=== PATIENT | male | born 1950 | race Caucasian/White ===

== ENCOUNTER → 2016-09-26 | Outpatient (CLI) | payer MEDICARE ==
--- NOTE | 2016-09-26 14:38 | PCVCIMAG ---
EXAM: VENOUS DUPLEX LEFT LOWER EXTREMITY INDICATION: Left leg DVT. FINDINGS: Left leg: No thrombus in the common femoral vein. Moderate amount of nonocclusive thrombus in the lower main femoral vein is unchanged since September 11 study. Since prior study nonocclusive thrombus in the mid and lower left popliteal vein is now identified. Calf veins remain patent. IMPRESSION: No change in moderate nonocclusive thrombus lower main femoral vein since recent study. There is however nonocclusive thrombus now identified in the mid and and lower popliteal vein on today's study and this was not previously reported. Results reviewed with Dr. Yan. LOC:[id number]
--- NOTE | 2016-09-26 17:46 | PCVCIMAG ---
APPROVED REPORT Study performed: 09/26/2016 11:19:49 EXAM: Limited 2D and color flow Echocardiogram Other Information Study Quality: Technically Limited Technically limited study due to body habitus. Risk Factors: Cardiac Risk Factors: HTN, SOB Indications Pulmonary Embolism Dyspnea 2D Dimensions LVEF(%): 50.01 (>50%) IVSd: 12.91 (7-11mm) LVDd: 44.14 mm PWd: 11.72 (7-11mm)Ascending Ao: 34.10 (22-36mm) LVDs: 33.01 (25-40mm) Left Atrium: 34.39 (27-40mm) Aortic Root: 34.46 mm LV Single Plane 4CH: 57.33 % LV Single Plane 2CH: 47.60 %Duran's LVEF: 52.47 % Biplane EF: 51.2 % Aortic Valve AoV Peak Salvador.: 1.10 m/s AO Peak Gr.: 4.81 mmHg Mitral Valve E/A Ratio: 0.9 MV Decel. Time: 272.86 ms MV E Max Salvador.: 0.52 m/s MV A Salvador.: 0.59 m/s Tricuspid Valve TR Peak Salvador.: 2.40 m/s TR Peak Gr.: 23.02 mmHg Left Ventricle The left ventricle is normal size. There is normal LV segmental wall motion. Mild basal septal hypertrophy is present. Left ventricular systolic function is within lower limits of normal. LVEF is 50%. Grade I - abnormal relaxation pattern. Right Ventricle Right ventricle is mildly dilated. The right ventricular systolic function is normal. Atria Left atrium is mildly dilated. The right atrium size is normal. Aortic Valve The aortic valve is normal in structure. No aortic regurgitation is present. There is no aortic valvular stenosis. Mitral Valve The mitral valve is normal in structure. There is no mitral valve regurgitation noted. No evidence of mitral valve stenosis. Tricuspid Valve The tricuspid valve is normal in structure. Mild tricuspid regurgitation with PAP of 33 mmHg. Pulmonic Valve The pulmonary valve is normal in structure. There is no pulmonic valvular regurgitation. Great Vessels The aortic root is normal in size. IVC is normal in size and collapses with >50% inspiration Pericardium There is no pericardial effusion. There is no pleural effusion. <Conclusion> The left ventricle is normal size. Left ventricular systolic function is within lower limits of normal. LVEF is 50%. Grade I - abnormal relaxation pattern. Right ventricle is mildly dilated. The right ventricular systolic function is normal. Left atrium is mildly dilated. The right atrium size is normal. The aortic valve is normal in structure. There is no mitral valve regurgitation noted. Mild tricuspid regurgitation with PAP of 33 mmHg. There is no pericardial effusion.
== END | disposition home or self-care (01) ==
LOC: PCVCIMAG 10:11
PROVIDERS: ATTEND Internal Medicine Cardiovascular Disease
DX: I07.1 Rheumatic tricuspid insufficiency (principal); I10 Essential (primary) hypertension; E78.5 Hyperlipidemia, unspecified; I25.10 Atherosclerotic heart disease of native coronary artery without angina pectoris; I82.402 Acute embolism and thrombosis of unspecified deep veins of left lower extremity; I26.92 Saddle embolus of pulmonary artery without acute cor pulmonale; R06.00 Dyspnea, unspecified; Z79.899 Other long term (current) drug therapy; Z87.891 Personal history of nicotine dependence
CPT/HCPCS: 93308; 93971; G0463; 93005

== ENCOUNTER → 2016-12-25 | Outpatient (CLI) | payer MEDICARE ==
--- NOTE | 2016-12-25 09:46 | PCVCIMAG ---
EXAM: VENOUS DUPLEX LEFT LOWER EXTREMITY INDICATION: Leg pain and swelling. DVT. FINDINGS: Left leg: No thrombus in the common femoral or main femoral veins. The upper popliteal vein is patent. There is moderate nonocclusive thrombus in the lower popliteal vein. Calf veins are unremarkable where seen. IMPRESSION: Moderate nonocclusive thrombus in the lower left popliteal vein similar to September 2016 study. Since the prior study nonocclusive thrombus in the upper popliteal vein and lower main femoral vein has resolved. LOC:[id number]
--- NOTE | 2016-12-25 13:37 | PCVCIMAG ---
APPROVED REPORT Study performed: 12/25/2016 08:34:27 EXAM: Comprehensive 2D, Doppler, and color-flow Echocardiogram Patient Location: Echo lab Status: routine BSA: 2.71 HR: 70 bpmBP: 140/80 mmHg Rhythm: NSR Other Information Study Quality: Technically Limited Indications CAD Hypertension/HDD Pulmonary emboli. Hyperlipidemia. Left Ventricle LVEF is >55%. Right Ventricle Right ventricle is mildly dilated. Tricuspid Valve Normal pulmonary artery pressure. Pericardium no effusion <Conclusion> This is a limited echocardiogram for ejection fraction following Pulmonary embolus. Normal ejection fraction. Right ventricle is mildly dilated. LVEF is >55%. Right ventricle is mildly dilated. Normal pulmonary artery pressure. no effusion
== END | disposition home or self-care (01) ==
LOC: PCVCIMAG 07:47
PROVIDERS: ATTEND Internal Medicine Cardiovascular Disease
DX: I82.432 Acute embolism and thrombosis of left popliteal vein (principal); I26.92 Saddle embolus of pulmonary artery without acute cor pulmonale; I10 Essential (primary) hypertension; G47.30 Sleep apnea, unspecified; I25.10 Atherosclerotic heart disease of native coronary artery without angina pectoris; E78.00 Pure hypercholesterolemia, unspecified; I51.7 Cardiomegaly; J45.909 Unspecified asthma, uncomplicated; Z87.891 Personal history of nicotine dependence; Z79.899 Other long term (current) drug therapy
CPT/HCPCS: 80061; 93005; 93308; 93971; G0463

== ENCOUNTER → 2017-08-01 | Outpatient (CLI) | payer MEDICARE | END | disposition home or self-care (01) | LOC: PCVCIMAG 10:03 | DX: I82.402 Acute embolism and thrombosis of unspecified deep veins of left lower extremity (principal); I26.99 Other pulmonary embolism without acute cor pulmonale; I10 Essential (primary) hypertension; G47.30 Sleep apnea, unspecified; E78.00 Pure hypercholesterolemia, unspecified; D68.59 Other primary thrombophilia; Z82.49 Family history of ischemic heart disease and other diseases of the circulatory system; Z87.891 Personal history of nicotine dependence; Z79.899 Other long term (current) drug therapy; Z79.82 Long term (current) use of aspirin | CPT/HCPCS: 80061; 93005; 93971; G0463 ==

== ENCOUNTER → 2018-05-06 | Outpatient (CLI) | payer MEDICARE | END | disposition home or self-care (01) | LOC: PCVCCLINIC 15:13 | PROVIDERS: ATTEND Internal Medicine Cardiovascular Disease | DX: I10 Essential (primary) hypertension (principal); E78.00 Pure hypercholesterolemia, unspecified; G47.33 Obstructive sleep apnea (adult) (pediatric); Z86.711 Personal history of pulmonary embolism; Z86.718 Personal history of other venous thrombosis and embolism; Z87.891 Personal history of nicotine dependence | CPT/HCPCS: 80061; 93005; G0463; 36415 ==

== ENCOUNTER → 2019-01-07 | Outpatient (CLI) | payer MEDICARE ==
--- NOTE | 2019-01-07 14:10 | PCVCIMAG ---
APPROVED REPORT Study performed: 01/07/2019 12:33:53 EXAM: Comprehensive 2D, Doppler, and color-flow Echocardiogram Patient Location: Echo lab Status: routine BSA: 2.81 HR: 64 bpmBP: 128/86 mmHg Rhythm: NSR Other Information Study Quality: Technically Difficult Technically limited study due to body habitus. Risk Factors: Cardiac Risk Factors: HTN Indications COPD Dyspnea hx pulmonary embolism, morbid obesity 2D Dimensions IVSd: 12.45 (7-11mm) LVDd: 48.75 mm PWd: 11.19 (7-11mm)Ascending Ao: 36.71 (22-36mm) LVDs: 33.93 (25-40mm) Left Atrium: 40.55 (27-40mm) Aortic Root: 35.08 mm LV Single Plane 4CH: 54.24 % LV Single Plane 2CH: 52.37 % Biplane EF: 54.1 % Volumes Left Atrial Volume (Systole) Single Plane 4CH: 43.70 mLSingle Plane 2CH: 61.28 mL LA ESV Index: 19.00 mL/m2 Aortic Valve AoV Peak Salvador.: 1.28 m/s AO Peak Gr.: 6.56 mmHgLVOT Max P.70 mmHg LVOT Max V: 1.19 m/s Mitral Valve E/A Ratio: 1.2 MV Decel. Time: 251.78 ms MV E Max Salvador.: 0.70 m/s MV A Salvador.: 0.60 m/s IVRT: 96.89 ms Pulmonary Valve PV Peak Salvador.: 0.72 m/sPV Peak Gr.: 2.09 mmHg Pulmonary Vein P Vein S: 0.23 m/sP Vein A: 0.38 m/s P Vein D: 0.35 m/sP Vein A Dur.: 141.9 msec P Vein S/D Ratio: 0.66 Tricuspid Valve TR Peak Salvador.: 2.86 m/s TR Peak Gr.: 32.67 mmHg Left Ventricle The left ventricle is normal size. There is normal LV segmental wall motion. Borderline concentric left ventricular hypertrophy. Left ventricular systolic function is borderline within the lower limits of normal. LVEF is 50-55%. Grade I - abnormal relaxation pattern. Right Ventricle Right ventricle is mild to moderately dilated. The right ventricular systolic function is normal. Atria The left atrium size is normal. Right atrium is mildly dilated. Aortic Valve The aortic valve is normal in structure. No aortic regurgitation is present. There is no aortic valvular stenosis. Mitral Valve The mitral valve is normal in structure. There is no mitral valve regurgitation noted. No evidence of mitral valve stenosis. Tricuspid Valve The tricuspid valve is normal in structure. Mild tricuspid regurgitation with PAP of 43 mmHg. Pulmonic Valve The pulmonary valve is normal in structure. Trace pulmonic regurgitation. Great Vessels The aortic root is normal in size. IVC is not well visualized. Pericardium There is no pericardial effusion. There is no pleural effusion. <Conclusion> The left ventricle is normal size. Borderline concentric left ventricular hypertrophy. LVEF is 50-55%. Grade I - abnormal relaxation pattern. Right ventricle is mild to moderately dilated. Right atrium is mildly dilated. The aortic valve is normal in structure. There is no mitral valve regurgitation noted. Mild tricuspid regurgitation with PAP of 43 mmHg. The aortic root is normal in size. There is no pericardial effusion.
== END | disposition home or self-care (01) ==
LOC: PCVCIMAG 12:32
PROVIDERS: ATTEND Internal Medicine Cardiovascular Disease
DX: I07.1 Rheumatic tricuspid insufficiency (principal); I11.9 Hypertensive heart disease without heart failure; J44.9 Chronic obstructive pulmonary disease, unspecified
CPT/HCPCS: 36415; 80061; 93005; 93306; G0463